=== PATIENT | female | born 2005 | race Caucasian/White ===

== ENCOUNTER 2024-03-10 20:36 | Inpatient (IN) | payer OTHER, SELFPAY ==
[2024-03-10] VITALS (7 sets, daily range): BP systolic 104–143; BP diastolic 62–83; BMI 23.2; BMI 22.6
[2024-03-10 13:58] LABS: % Basophils 0.3 % (0-2); % Eosinophils 0.5 % (0-6); % Immature Granulocytes 0.5 % (0-0.5); % Lymphocytes 11.1 % (20.5-51.1); % Neutrophils 77.6 % (42.2-75.2); Absolute Basophils 0.1 10^3/uL (0-0.2); Absolute Eosinophils 0.1 10^3/uL (0-0.7); Absolute Immature Granulocytes 0.1 10^3/uL (0-0.05); Absolute Lymphocytes 1.7 10^3/uL (1.2-3.4); Absolute Monocytes 1.5 10^3/uL (0.1-0.6); Absolute Neutrophils 11.9 10^3/uL (1.4-6.5); Hematocrit 40.4 % (37.0-47.0); Hemoglobin 13.7 g/dL (12.0-16.0); Mean Corp Hgb Conc. 33.9 g/dL (33.0-37.0); Mean Corpuscular Hgb 31.1 pg (27.0-31.0); Mean Corpuscular Volume 91.8 fL (81.0-99.0); Mean Platelet Volume 9.3 fL (7.4-10.4); Nucleated Red Blood Cells % 0 %; Platelet Count 366 10^3/uL (130-400); Red Cell Dist. Width 12.5 % (11.5-14.5); White Blood Cell Count 15.3 10^3/uL (4.8-10.8)
[2024-03-10 14:09] LABS: Urine Albumin 2+ (Neg - Trace); Urine Bilirubin Negative (Negative); Urine Character Slightly Cloudy (Clear); Urine Color Yellow; Urine Glucose Negative (Negative); Urine Ketone Negative (Negative); Urine Leukocyte 2+ (Negative); Urine Nitrite Positive (Negative); Urine Occult Blood 4+ (Negative); Urine Specific Gravity 1.015 (<1.030); Urine Urobilinogen Negative (Neg - 1+)
[2024-03-10 14:25] LABS: Urine Bacteria Moderate (Negative); Urine Red Blood Cell 40-50 /HPF (0-2); Urine White Cell >100 /HPF (0-5)
--- NOTE | 2024-03-10 14:30 | ED.GENMED ---
History of Present Illness
General
Chief Complaint: Problems
Source: patient
Exam Limitations: none
Time Seen by Provider: 03/10/24 13:52
Nursing documentation reviewed up to this point in time: agreed with
History of Present Illness
History of Present Illness:
18-year-old female presenting to the emergency department with a few days of nausea, vomiting, lower abdominal discomfort and positive at-home test. Patient reports intermittent waves of nausea/vomiting over the past few days. Also
notices some lower abdominal discomfort and right low back pain. No fevers or chills. No dysuria, hematuria. Patient denies any vaginal spotting or abnormal vaginal discharge.
Of note�patient did have a few recent positive at-home test days ago. She states that her last menstrual period was mid December although she does normally have irregular periods. She states that throughout the past week she is simply felt
'off 'and given the nausea/vomiting she decided to take a test.
Patient has not had any prior pregnancies.
Review of Systems
Review of Systems
Allergies reviewed?: Yes
All Other Systems: ROS reviewed and negative except as documented in HPI and ROS
Phy Exam
Physical Exam
Physical Exam:
Vitals: Mildly hypertensive, otherwise vital signs stable. Afebrile
General: Patient is well appearing, no acute distress
Skin: Warm and dry, no rashes or lesions
Head: Normocephalic, atraumatic
Eyes: Sclera nonicteric. EOMs intact. No nystagmus.
Throat: Protecting airway
Neck: Normal ROM, no cervical spine tenderness, no meningismus
Cardiac: Regular rate and rhythm, no murmurs.
Pulm: Normal respiratory effort, no wheezes, rales, rhonchi heard on exam.
Abdomen: Abdomen soft. Mild lower abdominal tenderness. No rebound tenderness or guarding. No CVA tenderness.
Extremities: No evidence of cyanosis or edema. Great distal pulse
Neuro: AAOx3. CN II-XII intact. No focal neurologic deficits.
Psychiatric: Normal affect.
Course
Orders/Labs/Results
Orders:
Orders
03/10/24 13:36
Test Result ONCE
03/10/24 13:44
Type+Screen Urgent
Beta HCG Quantitative Urgent
Complete Blood Count/With Diff Urgent
Urinalysis Reflex To Culture Urgent
Date Specimen was Collected: 03/10/24
Time Specimen was Collected: 13:37
Urine Microscopic Reflex Cult Urgent
Urine Culture Urgent
MICHELLE Source: U
Specimen Description:
Date Specimen was Collected: 03/10/24
Time Specimen was Collected: 13:37
03/10/24 15:17
Renal Only US [US Renal Only W/O Bladder] Urgent
Comment: UTI
Reason For Exam: Right flank pain
US 1st Trimester Urgent
Comment: unknown gestation; LMP mid december
Reason For Exam: lower abdominal pain, positive test
03/10/24 15:19
0.9% Sodium Chloride 1000 ml [Nss] 1,000 ml IV BOLUS
03/10/24 17:35
Acetaminophen [Tylenol] 650 mg PO NOW STA
03/10/24 19:34
CefTRIAXone [Rocephin] 1,000 mg IV NOW STA
03/10/24 20:00
Admit/Transfer Patient As Directed
Co-Sign Provider:
Level of Care: Inpatient admission
Assign to:: Medical/Surgical
Physician / Group: Derik
Diagnosis: UTI / ? Pyelonephritis
Reason for Hospitalization: UTI / ? Pyelonephritis
Expected length of stay greater than two midnights?: Yes
ELOS- Estimated Length of Stay in days: 2
I certify the patient meets the requirements for IP care: Yes
PRN Pain Medication Management As Directed
May give lesser potent ordered pain med per pt: Yes
preference::
Protocol:: Medication orders for pain may be administered in a
manner that supports deferring to patient preference
when the pt is:
- Requesting an ordered lesser potent pain medication.
Least to most potent pain medications are defined
as: acetaminophen < NSAID < tramadol < opioids
(morphine, oxycodone, hydromorphone).
- Requesting a lesser dose of the same medication IF
ORDERED.
- Requesting a less intrusive route of administration
if both routes are prescribed by the provider (PO <
IV).
03/10/24 20:03
Code Status As Directed
Resuscitation Status: Full Code
03/10/24 20:14
ABO2 Urgent
BBK Wristband Number:
Associate notified that ABO2 has been ordered: DARELL-ER
Date: 03/10/24
Time: 14:00
[employer]koog Patching Machine Operator ID: [id number]
BMP [Basic Metabolic Panel] Urgent
Abnormal Lab Results
03/10/24
13:44
WBC 15.3 H 10^3/uL
(4.8-10.8)
MCH 31.1 H pg
(27.0-31.0)
Abs Immat Gran (auto) 0.1 H 10^3/uL
(0-0.05)
Absolute Neuts (auto) 11.9 H 10^3/uL
(1.4-6.5)
Absolute Monos (auto) 1.5 H 10^3/uL
(0.1-0.6)
Neutrophils % 77.6 H %
(42.2-75.2)
Lymphocytes % 11.1 L %
(20.5-51.1)
Monocytes % 10.0 H %
(1.7-9.3)
Ur Occult Blood Reflex 4+ A
(Negative)
Urine Nitrite (Reflex) Positive A
(Negative)
Leukocyte Esterase Rfl 2+ A
(Negative)
Urine RBC 40-50 A /HPF
(0-2)
Urine WBC (Reflex) >100 A /HPF
(0-5)
Urine Bacteria (Reflex) Moderate A
(Negative)
Urine Albumin (Reflex) 2+ A
(Neg - Trace)
03/10/24 13:44
Vital Signs
Initial and Last Documented VS:
Initial Vital Signs
Temp Pulse Resp BP Pulse Ox
97.9 F 97 16 143/80 100
03/10/24 13:31 03/10/24 13:31 03/10/24 13:31 03/10/24 13:31 03/10/24 13:31
Last Documented Vital Signs
Temp Pulse Resp BP Pulse Ox
97.9 F 80 16 126/71 100
03/10/24 13:31 03/10/24 16:15 03/10/24 20:00 03/10/24 20:00 03/10/24 13:31
Information
Weeks gestation: Weeks: (11)
Location: Location: (Intrauterine)
MDM/Problems Addressed
Differential Diagnosis Includes:
Not limited to: Hyperemesis gravidarum, ectopic , UTI, pyelonephritis, kidney stone, viral gastroenteritis,
MDM/Problems Addressed:
18-year-old female presenting with intractable nausea vomiting and positive at-home test. Patient afebrile on arrival. Vital stable. Labs initiated in triage show a leukocytosis [place] 15[place] [address]. Urine was obtained from
patient in triage which appears infected. Patient does mention mild right lower back pain, as well. He first trimester ultrasound as well as renal ultrasound was obtained to rule out obstructive uropathy. Patient given IV fluids, Tylenol.
Update: Obstetrics ultrasound noted. Single intrauterine gestation noted estimated to be 11 weeks. Renal ultrasound negative for obstructive uropathy. Given UTI with leukocytosis and low back pain�concern for pyelonephritis. Did recheck
patient's temperature and was 100.0 F. Discussed with [employer] MILL WORKER, Dr. Spear. Plan for admission to hospital for IV antibiotics/continued monitoring. Patient given dose of IV Rocephin in emergency department. Patient admitted to hospitalist service
in stable condition. Case discussed with attending physician.
Chronic conditions affecting care:
N/A
Acute Exacerbation and/or Progression of Chronic Illness:
N/A
*Radiology
Radiology exam reviewed: radiology read reviewed
*Pulse Oximetry
Patient hypoxic: no
*EKG
Interpreted by ED Provider?: NA
*Bus Info Consultant Interpretation
Rate: Bus Info Consultant- N/A
*Critical Care Note
Total Time (30-74mins, 75-104mins- exclusive of procedures): Not Applicable
Patient Management
Discussion with other providers: Hospitalist and Down Filler (OBGYN - Dr. Spear)
Escalation/DeEscalation of care consider admission/obs:
Admit for IV antibiotics/continue to monitor
ED Attending Note
-
Portions of this chart may have been created with voice recognition software.� Occasional wrong word or��sound alike� substitutions may have occurred due to the inherent limitations of voice recognition software.
Discharge Plan
Departure
Patient Disposition: Admit
Date of Disposition: 03/10/24
Time of Disposition: 19:34
Presentation/result/management discussed w/ accepting MD/DO: Hospitalist
Discharge Problem:
Acute pyelonephritis in first trimester, antepartum
Interventions
Interventions:
*Risk Screen - Suicide Last Done: 03/10/24 13:31
*General Assessment Last Done: 03/10/24 15:16
*Neglect/Abuse Screening Last Done: 03/10/24 13:31
*ED COVID-19 Vaccine History Last Done: 03/10/24 15:16
ED-Female Genitourinary Assessment Last Done: 03/10/24 15:16
[2024-03-10] MEDS: NSS 1000 IV ×2 (15:20→21:55)
[2024-03-10] MEDS: TYLENOL 650 MG PO ×2 (17:39→22:58)
[2024-03-10] MEDS: ROCEPHIN 1000 MG IV (19:37)
--- NOTE | 2024-03-10 20:09 | HPS.HSE ---
Family Physician
-
Family Physician: Nate Mendez
Chief Complaint
-
Abd Pain, N/V
History of Present Illness
Patient is a 18y F with no significant PMH who presents to ED complaining of abdominal pain and N/V. Patient states that she has had nausea and crampy lower abdominal pain for the past 3-4 days. Her symptoms also included lower back pain - in a
band-like fashion around the waist. She has had dry heaves and non-bloody emesis. Her symptoms have been somewhat intermittent and she felt well at times. Patient reports additional symptoms of chills, constipation and R flank pain. She
attributes to the R flank pain to 'pulling something' during dry heaves / retching spells.
Patient denies any urinary complaints including frequency, urgency, dysuria or hematuria.
Patient notes that she took a home test a few days ago which was positive. She has had no prior pregnancies.
Currently she is resting comfortably in the ED and feels improved s/p Tylenol.
Medical History
Past Medical History
Past Medical History: Reports None
Past Surgical History: Reports None
Social History
Tobacco: Non-smoker
Alcohol: None
Drug: None
Family History
Family History: Cancer (Breast Cancer) and Other (Mother / Sister: Kidney stones and frequent UTIs.)
Allergies / Home Medications
Allergies reflects when Allergies were last updated in [facility].
Home Medications with original date entered in [facility]
Allergy/Medication List:
Allergies
Allergy/AdvReac Type Severity Reaction Status Date / Time
No Known Allergies Allergy Unverified 03/10/24 13:30
Home Medications
No Meds [No Current Medications] 03/10/24
Review of Systems
-
History Source: Patient
A 12 point ROS was completed and negative except as noted: Yes
Constitutional: Reports Fatigue and Chills; Denies Fever
EENT: Denies Sore Throat
Respiratory: Denies Cough or Trouble Breathing
Cardiac: Denies Chest Pain or Palpitations
Abdomen/GI: Reports Abdominal Pain, Nausea, Vomiting and Constipated; Denies Diarrhea, Bloody Stools, Black Stools or Anorexia
: Reports Flank Pain; Denies Dysuria, Frequency, Incontinence or Bleeding
Musculoskeletal: Denies Joint Pain or Edema
Neurological: Denies Dizzy or Headache
Psych: Denies Depression or Anxiety
Physical Exam
Vital Signs
Vital Signs
Temp Pulse Resp BP Pulse Ox
97.9 F 80 16 126/71 100
03/10/24 13:31 03/10/24 16:15 03/10/24 20:00 03/10/24 20:00 03/10/24 13:31
Physical Exam
General: Other (18y F in no acute distress.)
HEENT: Moist mucous membranes
Respiratory: Clear; No Wheezes, Rales or Rhonchi
Cardiac: S1/S2 and Regular Rhythm; No Murmur
GI: Soft, Non Distended, Normal Bowel Sounds and Other (Mild lower abdominal / suprapubic tenderness.)
Genito-urinary: Costovertebral angle tend (Right.)
Musculoskeletal: No Clubbing, No Cyanosis and No Edema
Neuro: AO x 3
Laboratory Results
-
03/10/24 13:44
Impression/Plan
-
A/P: Patient is a 18y F with no significant PMH who presents to ED complaining of abdominal pain and N/V x several days.
UTI
- Admit for further evaluation and treatment.
- ? Pyelo on basis of R flank pain and N/V - however, patient is afebrile here and describes no urinary symptoms.
- IV ceftriaxone for now pending culture data.
- Supportive care including IVFs, antiemetics and pain control.
- US done in the ED shows sediment within the bladder c/w UTI - but no perinephric inflammation, obstruction, etc.
11 weeks GA
- Patient states that this is her first .
- US done in the ED suggests approx 11 weeks GA and small subchorionic hemorrhage.
- OB consulted for evaluation.
- Start vitamin.
DVT Prophylaxis: SCDs
Code Status: Full
[2024-03-10 20:43] LABS: Blood Urea Nitrogen 9 mg/dl (7-17); Calcium 8.7 mg/dl (8.4-10.2); Carbon Dioxide 23 mmol/L (22-30); Chloride 100 mmol/L (98-107); Estimated Creatinine Clearance > 125 ml/min; Glucose 209 mg/dl (70-99); Potassium 3.8 mmol/L (3.5-5.1); Sodium 135 mmol/L (135-145); eGFR > 60.00
--- NOTE | 2024-03-10 21:15 | PTCARENOTE ---
Receive pt from ER. Pt alert oriented X3, calm and cooperative. Pt assisted to her bed, steady gait, in no distress. Significant other and friend at the bedside. Pt oriented to the room, call hassan within reach. VSS (T=98.9, VO=816, RR=18, VI=511/75,
ViN0=671% on RA). Pt states that she has pain in her lower abd and lower back. The pain is acceptable (2/10). Pt denies dysuria, burning sensation, or hematuria. Pt states that the nausea is manageable at this time. Pt expressed that her
is unexpected as this time. IVFs infusing as per order. Pt resting comfortably in her bed. Will continue to monitor the pt.
[2024-03-11 03:00] VITALS: BP 96/47
[2024-03-11] MEDS: NSS 1000 IV (05:57)
[2024-03-11 06:02] VITALS: BP 106/57
[2024-03-11 07:35] VITALS: BP 106/63
[2024-03-11 08:14] LABS: Blood Urea Nitrogen 6 mg/dl (7-17); Calcium 8.2 mg/dl (8.4-10.2); Carbon Dioxide 20 mmol/L (22-30); Chloride 106 mmol/L (98-107); Estimated Creatinine Clearance > 125 ml/min; Glucose 90 mg/dl (70-99); Hematocrit 31.6 % (37.0-47.0); Hemoglobin 10.7 g/dL (12.0-16.0); Mean Corp Hgb Conc. 33.9 g/dL (33.0-37.0); Mean Corpuscular Hgb 29.9 pg (27.0-31.0); Mean Corpuscular Volume 88.3 fL (81.0-99.0); Mean Platelet Volume 9.5 fL (7.4-10.4); Platelet Count 264 10^3/uL (130-400); Potassium 3.6 mmol/L (3.5-5.1); Red Blood Cell Count 3.58 10^6/uL (4.20-5.40); Red Cell Dist. Width 12.6 % (11.5-14.5); Sodium 138 mmol/L (135-145); White Blood Cell Count 11.5 10^3/uL (4.8-10.8); eGFR > 60.00
--- NOTE | 2024-03-11 09:05 | W.PN.HOSP.TC ---
Today's Communication/Plan
-
Cleared by OB for discharge today
Assessment / Plan
Assessment / Plan
18y F with no significant PMH who presents to ED complaining of abdominal pain and N/V x several days.
UTI
- ? Pyelo on basis of R flank pain and N/V - however, patient is afebrile here and describes no urinary symptoms.
- US done in the ED shows sediment within the bladder c/w UTI - but no perinephric inflammation, obstruction, etc.
- Currently on IV Rocephin, urine cultures growing E. coli
- Medically stable for discharge on cefuroxime to complete a 5-day course
11 weeks GA
Small subchorionic hemorrhage
- Patient states that this is her first .
- US done in the ED suggests approx 11 weeks GA and small subchorionic hemorrhage.
- Appreciate OB input, labs added to today's lab, continue vitamin
- Patient counseled to follow-up with OB as soon as possible
Anemia
-Likely dilutional from IV fluids and
DVT Prophylaxis: SCDs
Code Status: Full
Physical Exam
General: No acute distress
HEENT: Normocephalic, Atraumatic, EOMI, MMM
Respiratory: Clear to Auscultation bilaterally
Cardiac: Normal S1/S2, Regular Rate and Rhythm
GI: Soft, Nontender, Nondistended, Normal Bowel Sounds
Extremities: No Clubbing, Cyanosis, or Edema
Neuro: Nonfocal/Grossly Intact
Psych: Calm, Cooperative
Derm: No Visible lesions
Anticipated Discharge: Today
Subjective/Interval History
-
Date of Service: March 11, 2024
Patient reports feeling better. Nausea/vomiting resolved. Lower back pain/suprapubic pain resolved. She is tolerating a diet. No fever.
Objective Data
-
Labs:
Laboratory Results
03/11/24
06:55
WBC 11.5 H
Hgb 10.7 L D
Hct 31.6 L
Plt Count 264 D
Sodium 138
Potassium 3.6
Chloride 106
Carbon Dioxide 20 L
BUN 6 L
Creatinine 0.5 L
Glucose 90
Calcium 8.2 L
Vital Signs:
Vital Signs
Temp Pulse Resp BP Pulse Ox
99.0 F 91 18 106/63 96
03/11/24 07:35 03/11/24 07:35 03/11/24 07:35 03/11/24 07:35 03/11/24 07:35
I&O
03/10/24 03/11/24 03/12/24
06:59 06:59 06:59
Intake Total 1000 / 1000
Balance 1000 / 1000
[2024-03-11] MEDS: PRENATAL PLUS 1 TABLET PO (09:35)
--- NOTE | 2024-03-11 10:24 | CM ---
Addendum entered by Judie Jensen 03/11/24 10:30:
Insurance- [employer]
Informed admissions to update
Original Note:
Pt seen at bedside w/ spouse. Pt lives w/ dad and sister in a 2STH.
Pt is 11 weeks . OBGYN consulted
Currently being treated for UTI
Address and insurance confirmed
PCP: Dr. Nathaniel Sullivan
Pharmacy: [facility]
Pt states she will follow up w/ OBGYN in [place]
Pt denies any resources at this time. Spouse family is supportive
Plan: Home w/ no needs
--- NOTE | 2024-03-11 12:44 | W.PN.OBG.DWH ---
Today's Communication / Plan
-
US, nakul hemorrhage reviewed
begin pnv
PN labs added to labs already drawn
pt will f/up at [facility]
provide disc with US and result of labs upon discharge
NT US discussed with pt
mgmt constipation reviewed
pyelo
continue with abx
await results of C and S
ttxt above to Dr. Conroy
Assessment/Plan
-
11 week
pyelonephritis on abx
Subjective Data
-
pt seen and examined
denies vaginal bleeding
sxs improved
Objective Data
-
Laboratory Results
03/11/24 06:55
03/11/24 06:55
Vital Signs
Temp Pulse Resp BP Pulse Ox
99.0 F 91 18 106/63 96
03/11/24 07:35 03/11/24 07:35 03/11/24 07:35 03/11/24 07:35 03/11/24 07:35
[2024-03-11] MEDS: NSS IV (14:28)
[2024-03-11] MEDS: CEFTIN 500 MG PO (14:29)
[2024-03-11 14:39] VITALS: BP 114/76
--- NOTE | 2024-03-11 16:03 | W.DCSUMMARY ---
Discharge Summary
Discharge Data
Date of Admission: 03/10/24
Date of Discharge: 03/11/24
-
Pending Results: No
Hospital Course
Discharge diagnosis:
Acute urinary tract infection
Intrauterine
Small subchorionic hemorrhage
Anemia
Consults: OB
Renal/Bladder ultrasound:
No renal or ureteral calculus. No obstructive uropathy.
Incidental generalized increased echogenicity of the urine within the bladder. Such findings are nonspecific, and may be associated with sediment/fine particulate matter, excessive amounts of crystals, infection, or hematuria. Recommend correlation
with urinalysis.
OB US:
Single live intrauterine gestation of 11 weeks 1 day. The heart rate is 167 bpm.
Small subchorionic hemorrhage.
Incidental diffuse generalized low level echogenicity within the urinary bladder. Such findings are nonspecific, and may be associated with sediment/fine particulate matter, excessive amounts of crystals, infection, or hematuria. Recommend
correlation with urinalysis
Hospital course:
18-year-old female with no significant past medical history was admitted for right flank pain, nausea, and vomiting secondary to an acute urinary tract infection. Patient was treated with IV Rocephin. Urine cultures grew out E. coli, sensitive to
Ancef. She will be discharged on cefuroxime to complete a 5-day course.
Patient is also 11 weeks . She has anemia. Her hemoglobin was 13.7 upon admission, and dropped to 10.7. This is likely from receiving IV fluids, as well as having increased blood volume from her . OB ultrasound confirms
intrauterine at 11 weeks, 1 day, with a small subchorionic hemorrhage. She was seen in conjunction with OB. Patient was started on a vitamin, and informed about the small subchorionic hemorrhage. She is medically stable for
discharge. She has been instructed to follow-up with her primary care doctor in 1 week, and OB as soon as possible.
Disposition: Home self-care
Discharge planning: Required 36 minutes
Discharge Plan
-
Patient Disposition: Home (Routine Discharge)
Discharge Diagnosis/Procedures: Acute urinary tract infection, 11 weeks gestation , small subchorionic hemorrhage
Condition: Good
Diet: Regular
Activity: As tolerated
Driving Restrictions: As prior to admission
Activity Restrictions/Additional Instructions:
Please take your vitamin daily.
Establish care with an model and mold maker plaster as soon as possible, and follow-up with your primary care doctor 1 week.
Referrals:
Nate Mendez MD [Family Provider] - in one week
Prescriptions:
New
WesTab Plus 27 mg iron- 1 mg Tablet
1 tab PO DAILY Qty: 30 0RF
cefuroxime axetil 500 mg tablet
500 mg PO BID 4 Days Qty: 8 0RF
Discharge Orders:
Discharge Patient (As Directed); Ordered 03/11/24
Ordered By: Alejandro Conroy
Discharge Date and Time
Discharge Date/Time: 03/11/24 15:22
Print Language: MALTESE
== END 2024-03-11 15:22 | disposition home or self-care (01) | DRG 832 ==
LOC: 4 EAST ACU 20:36
PROVIDERS: ADMITTING PHYSICIAN Hospitalist; ATTENDING PHYSICIAN Family Medicine; EMERGENCY PHYSICIAN Student in an Organized Health Care Education/Training Program; FAMILY PHYSICIAN Family Medicine; OTHER PHYSICIAN Obstetrics & Gynecology
DX: O21.9 Vomiting of pregnancy, unspecified (principal); N39.0 Urinary tract infection, site not specified; O23.01 Infections of kidney in pregnancy, first trimester; O23.41 Unspecified infection of urinary tract in pregnancy, first trimester; Z3A.11 11 weeks gestation of pregnancy; O20.8 Other hemorrhage in early pregnancy; N83.10 Corpus luteum cyst of ovary, unspecified side; O34.81 Maternal care for other abnormalities of pelvic organs, first trimester
CPT/HCPCS: 76775; 76801; 80048; 81003; 81015; 84702; 85025; 85027; 86850; 86900; 86901; 87071; 87086; 87186; 96361; 96374; 99285